=== PATIENT | female | born 1995 | race Caucasian/White ===

== ENCOUNTER 2017-08-23 20:42 | Inpatient (IN) ==
--- NOTE | 2017-08-23 21:25 | P.HPOB ---
History of Present Illness Primary Care Physician: NOT REQUIRED Chief Complaint: Labor pain History of Present Illness: Patient is a 22-year-old white female at 39 weeks 6 days [facility] only one visit that was today and presents complaining of contractions that are painful and regular. She was seen by Dr. David Olivo today and he stripped her membranes on the only day that he saw her and she is gone into labor. She has no leakage of fluid or bleeding. heart rate tracing is reactive and she is divina every 2-3 minutes Weeks Gestation:: 39 Para: 0 : 1 - Inpatient Certification If this patient has been admitted as an Inpatient: I certify that the inpatient services were ordered in accordance with Medicare regulations governing the order. This includes certification that hospital inpatient services are reasonable and necessary and in the case of services not specified as inpatient-only under 42 CFR 419.22(n), that they are appropriately provided as inpatient services in accordance to with the 2-midnight benchmark under 43 CFR 412.3(e) Estimated Total Length of Stay (Days): 3 Review of Systems Constitutional: Denies anorexia, Denies body ache(s), Denies chills, Denies daytime sleepiness, Denies excessive sweating, Denies fatigue, Denies fever(s), Denies headache(s), Denies increased appetite, Denies lack of energy, Denies malaise, Denies night sweats, Denies weakness, Denies weight gain, Denies weight loss, Denies other Cardiovascular: Denies bluish discoloration of hand/feet, Denies chest pain, Denies chest pain at rest, Denies chest pain with activity, Denies excessive sweating, Denies fainting, Denies fast heart rate, Denies foot swelling, Denies generalized swelling, Denies irregular heart rhythm, Denies leg pain with activity, Denies leg sores, Denies leg swelling, Denies lightheadedness, Denies radiating jaw, neck or arm pain, Denies rapid, pounding, or irregular heartbeat , Denies shortness of breath, Denies shortness of breath with activity, Denies shortness of breath when lying down, Denies shortness of breath causing sudden awakening, Denies slow heart rate, Denies other Respiratory: Denies change in phlegm color, Denies chest congestion, Denies cough, Denies coughing up blood, Denies excessive phlegm production, Denies pain on inspiration, Denies pain with cough, Denies shortness of breath, Denies shortness of breath with activity, Denies snoring, Denies stridor, Denies wheezing, Denies other Gastrointestinal: Denies abdominal pain, Denies belching, Denies black, tarry stools, Denies bloating, Denies bright, red blood in stools, Denies change in bowel habits, Denies constant urge to pass stool, Denies change in stools, Denies coffee ground vomit, Denies constipation, Denies cramping, Denies difficulty swallowing, Denies excessive passing of gas, Denies feeling full early, Denies heartburn, Denies incontinent of stools, Denies loose stools, Denies nausea, Denies pain with swallowing, Denies vomiting, Denies vomiting blood, Denies other Genitourinary: Denies abnormal periods, Denies abnormal vaginal bleeding, Denies absent period, Denies bleeding between periods, Denies blood in urine, Denies difficulty starting urination, Denies difficulty urinating, Denies dribbling after urination, Denies frequent nighttime urination, Denies genital itching, Denies genital lesions, Denies heavy periods, Denies hot flashes, Denies light periods, Denies nipple discharge, Denies painful intercourse, Denies painful periods, Denies painful urination, Denies pelvic pain, Denies prolapse symptoms, Denies sexual problems, Denies side pain, Denies urinary incontinence, Denies urinary urgency, Denies vaginal discharge, Denies vaginal dryness, Denies vaginal odor, Denies vaginal itching, Denies other Musculoskeletal: Denies abnormal walking, Denies back pain, Denies body aches, Denies decreased muscle mass, Denies deformity, Denies joint pain, Denies joint swelling, Denies limited joint movement, Denies loss of height, Denies muscle cramps, Denies muscle weakness, Denies neck pain, Denies numbness, Denies radiating pain into limb, Denies stiffness, Denies tingling, Denies other Neurologic: Denies abnormal hearing, Denies abnormal movements, Denies abnormal speech, Denies abnormal walking, Denies behavioral changes, Denies burning sensations, Denies confusion, Denies dizziness, Denies fainting, Denies frequent falls, Denies headache(s), Denies lack of coordination, Denies localized weakness, Denies loss of vision, Denies memory loss, Denies numbness, Denies other visual disturbances, Denies radiating pain, Denies restless legs, Denies convulsions, Denies seizure-like activity, Denies sensory deficit, Denies tingling, Denies tingling/numbness/burning sensations, Denies tremor(s), Denies unsteadiness, Denies weakness, Denies other Medications and Allergies Allergies Allergy/AdvReac Type Severity Reaction Status Date / Time No Known Allergies Allergy Unverified 08/23/17 21:21 Home Medications Medication Instructions Recorded Confirmed Type No Known Home Medications 08/23/17 08/23/17 History Exam Vital signs: Vital Signs 08/23/17 21:10 08/23/17 21:11 Pulse Rate 81 Respiratory Rate 18 Blood Pressure 137/72 - Constitutional no acute distress - Routine HEENT Exam Head: Present: normocephalic, atraumatic Eye: Present: PERRL - Routine Respiratory Exam Comments: Clear to auscultation normal breath sounds - Routine Cardiovascular Exam Present: RRR - Routine Abdominal Exam Present: soft Comments: Size equal dates - Routine Exam Comments: Pelvic exam reveals a cervix that is 4 cm/80%/-2 vertex with a bulging bag - Routine Skin Exam Present: intact - Routine Neurological Exam Present: alert, oriented X3 Caprini VTE Risk Assessment Caprini VTE Risk Assessment: No/Low Risk (score <= 1) Caprini Risk Assessment Model: Point Value = 1 Point Value = 2 Point Value = 3 Point Value = 5 Age 41-60 Minor surgery BMI > 25 kg/m2 Swollen legs Varicose veins or History of unexplained or recurrent spontaneous Oral contraceptives or hormone replacement Sepsis (< 1 month) Serious lung disease, including pneumonia (< 1 month) Abnormal pulmonary function Acute myocardial infarction Congestive heart failure (< 1 month) History of inflammatory bowel disease Medical patient at bed rest Age 61-74 Arthroscopic surgery Major open surgery (> 45 min) Laparoscopic surgery (> 45 min) Malignancy Confined to bed (> 72 hours) Immobilizing plaster cast Central venous access Age >= 75 History of VTE Family history of VTE Factor V Leiden Prothrombin [id number] Lupus anticoagulant Anticardiolipin antibodies Elevated serum homocysteine Heparin-induced thrombocytopenia Other congenital or acquired thrombophilia Stroke (< 1 month) Elective arthroplasty Hip, pelvis, or leg fracture Acute spinal cord injury (< 1 month) Prophylaxis Regimen: Total Risk Factor Score Risk Level Prophylaxis Regimen 0-1 Low Early ambulation 2 Moderate Order ONE of the following: *Sequential Compression Device (SCD) *Heparin 5000 units SQ BID 3-4 Higher Order ONE of the following medications: *Heparin 5000 units SQ TID *Enoxaparin/Lovenox 40 mg SQ daily (WT < 150 kg, CrCl > 30 mL/min) *Enoxaparin/Lovenox 30 mg SQ daily (WT < 150 kg, CrCl > 10-29 mL/min) *Enoxaparin/Lovenox 30 mg SQ BID (WT < 150 kg, CrCl > 30 mL/min) AND/OR *Sequential Compression Device (SCD) 5 or more Highest Order ONE of the following medications: *Heparin 5000 units SQ TID (Preferred with Epidurals) *Enoxaparin/Lovenox 40 mg SQ daily (WT < 150 kg, CrCl > 30 mL/min) *Enoxaparin/Lovenox 30 mg SQ daily (WT < 150 kg, CrCl > 10-29 mL/min) *Enoxaparin/Lovenox 30 mg SQ BID (WT < 150 kg, CrCl > 30 mL/min) AND *Sequential Compression Device (SCD) Assessment and Plan - Diagnosis (1) Uterine contractions during Code(s): O62.2 - Other uterine inertia Status: Acute Plan: Plan admit to labor and delivery, managed labor appropriately, anticipate vaginal delivery
[2017-08-23] MEDS ORDERED: Oxytocin 30 Units/500ml Premix 30 UNITS/500 ML BAG IV.SIG ONE ×2 (21:26→21:27)
[2017-08-23] MEDS ORDERED: Sod Chloride 0.9% Inj 1,000 ML IV.CONT PRN ×2 (21:26→21:27)
[2017-08-23] MEDS ORDERED: fentaNYL Citrate Inj 100 MCG/2 ML Ampul IV.PUSH PRN ×4 (21:26→21:27)
[2017-08-23] MEDS ORDERED: Naloxone Inj 0.4 MG/ML Vial IV.PUSH PRN ×2 (21:26→21:27)
[2017-08-23] MEDS ORDERED: Sodium Chlor 0.9% Inj 500 ML IV.SIG PRN ×2 (21:26→21:27)
[2017-08-23] MEDS ORDERED: Citric Acid/Sodium Citrate Liq 30 ML UDC PO SCH ×2 (21:30)
[2017-08-23] MEDS ORDERED: Lidocaine PF 1% Inj 30 ML Vial ONE (22:30)
[2017-08-23] MEDS ORDERED: fentaNYL 2MCG-Bupiv 0.125% Epi 150 ML EPIDURAL ONE ×2 (22:31→23:45)
[2017-08-23 22:32] LABS: Baso % (Auto) 0.2 % (0.0-2.0); Eos % (Auto) 0.1 % (0.0-4.0); Hematocrit 35.8 % (35.0-46.0); Hemoglobin 12.9 gm/dL (11.6-15.3); Lymph # (Auto) 1.9 th/mm3 (1.0-4.8); Lymph % (Auto) 9.4 % (9.0-44.0); Mean Corpuscular HGB Conc 35.9 % (32.0-36.0); Mean Corpuscular Hemoglobin 31.1 pg (27.0-34.0); Mean Corpuscular Volume 86.7 fL (80.0-100.0); Mono # (Auto) 1.1 th/mm3 (0.0-0.9); Mono % (Auto) 5.4 % (0.0-8.0); Neut # (Auto) 17.3 th/mm3 (1.8-7.7); Neut % (Auto) 84.9 % (16.0-70.0); Platelet Count 341 th/mm3 (150-450); Red Blood Count 4.13 mil/mm3 (4.00-5.30); Red Cell Distribution Width 12.9 % (11.6-17.2); White Blood Count 20.4 th/mm3 (4.0-11.0)
[2017-08-23 22:40] LABS: Amphetamine Urine With Conf Neg (Neg); Benzodiazepine Urine With Conf Neg (Neg)
[2017-08-23 22:44] LABS: Bacteria,Urine Rare /hpf; Bilirubin,Urine Negative (Negative); Clarity,Urine Hazy (Clear); Color,Urine Yellow (Yellw/Straw); Glucose,Urine (UA) Negative (Negative); Leukocyte Esterase,Urine Small (Negative); Mucus,Urine Few /lpf (Occasional); Nitrite,Urine Negative (Negative); Specific Gravity,Urine 1.008 (1.002-1.035); Squamous Epithelial Cell,Urine 7 /hpf (0-5)
[2017-08-23] MEDS ORDERED: Penicillin G Potassium Inj 2,500,000 UNIT in Sodium Chlor 0.9% Inj 100 ML IV.SIG SCH (23:00)
[2017-08-23] MEDS ORDERED: fentaNYL Citrate Inj 100 MCG/2 ML Ampul EPIDURAL ONE (23:42)
[2017-08-24 00:06] LABS: Hepatitis A IgM Antibody Nonreactive (Nonreactive)
[2017-08-24 00:07] LABS: Hepatitits B Surface Antigen Nonreactive (Nonreactive)
[2017-08-24] MEDS ORDERED: Penicillin G Potassium Inj 2,500,000 UNIT in Sodium Chlor 0.9% Inj 100 ML IV.SIG SCH (01:28)
[2017-08-24] MEDS ORDERED: Acetaminophen 325 MG Tablet PO PRN (02:17)
[2017-08-24] MEDS ORDERED: Zolpidem Tartrate 5 MG Tablet PO PRN (02:17)
[2017-08-24] MEDS ORDERED: Naloxone Inj 0.4 MG/ML Vial IV.PUSH PRN (02:17)
[2017-08-24] MEDS ORDERED: Benzocaine 20% Top Spray 60 ML Can TOPICAL PRN (02:17)
[2017-08-24] MEDS ORDERED: Bisacodyl 10 MG Supp RECTAL PRN (02:17)
[2017-08-24] MEDS ORDERED: Witch Hazel 50%/Glyderin 12.5% 40 Pad Jar RECTAL PRN (02:17)
[2017-08-24] MEDS ORDERED: Oxytocin 30 Units/500ml Premix 30 UNITS/500 ML BAG IV.CONT SCH (02:30)
--- NOTE | 2017-08-24 02:33 | P.OBDELI ---
Weeks Gestation: 39 Patient Started Active Labor: Yes Anesthesia: Epidural Episiotomy: midline Vaginal Delivery: Normal Presentation: Occiput anterior Nuchal Cord: None Delayed Cord Clamping (45 sec): Yes Placenta: Spontaneous delivery, Intact, 3 vessel cord Laceration: Episiotomy, 2 deg Repair: Chromic running Estimated blood loss (mL): 50 : Male Additional Information: Delivery supervised by Dr. Sow and Dr. Sanford
--- NOTE | 2017-08-24 07:25 | P.PNOB ---
Subjective Post day: 0 Interval history: Ms Fields is a 22 YO PPD#0 after at 39/6 weeks. Pain well controlled, taking PO, voiding, no BM or flatulence yet and not OOB yet. Bleeding the same as a period and no clots. . Still unsure of control yet but does not want a depo shot. Denies CP, SOB, N/V/D, DVT pain. All questions answered. Objective Vital Signs/I&O: Vital Signs 08/23/17 21:10 08/23/17 21:11 08/23/17 22:50 Temperature Pulse Rate 81 90 Respiratory Rate 18 Blood Pressure 137/72 08/23/17 22:55 08/23/17 23:15 08/23/17 23:25 Temperature Pulse Rate 84 87 92 H Respiratory Rate 17 Blood Pressure 114/83 127/73 106/76 08/23/17 23:30 08/23/17 23:40 08/23/17 23:45 Temperature Pulse Rate 80 92 H 86 Respiratory Rate Blood Pressure 133/75 134/74 123/75 08/23/17 23:55 08/24/17 00:00 08/24/17 00:15 Temperature 98.3 F Pulse Rate 99 H 83 Respiratory Rate 15 Blood Pressure 114/64 118/56 L 08/24/17 00:25 08/24/17 00:55 08/24/17 01:20 Temperature Pulse Rate 87 91 H 87 Respiratory Rate Blood Pressure 119/71 120/69 122/68 08/24/17 01:25 08/24/17 02:10 08/24/17 02:31 Temperature Pulse Rate 103 H 102 H Respiratory Rate 16 15 Blood Pressure 112/65 08/24/17 02:46 08/24/17 02:50 08/24/17 03:30 Temperature 98.7 F Pulse Rate 94 H 100 H Respiratory Rate 14 Blood Pressure 118/63 126/72 08/24/17 05:00 Temperature 98.2 F Pulse Rate 74 Respiratory Rate 17 Blood Pressure 125/70 Intake & Output 08/23/17 08/24/17 08/24/17 18:59 06:59 18:59 Weight 63.049 kg Result Diagrams: 08/23/17 22:15 Objective Remarks: GENERAL: Well-nourished, well-developed patient. CARDIOVASCULAR: Regular rate and rhythm without murmurs, gallops, or rubs. RESPIRATORY: Breath sounds equal bilaterally. No accessory muscle use. ABDOMEN/GI: Abdomen soft, non-tender. Fundus: Firm, non-tender at umbilicus. GENITOURINARY: Light to moderate bleeding. EXTREMITIES: No cyanosis or edema, non-tender, without signs of DVT. Medications and IVs: Active Medications Acetaminophen (Tylenol) 650 mg PO Q4H PRN PRN Reason: PAIN SCALE 1 TO 2 Al Hydroxide/Mg Hydroxide (Milk Of Magnesia Liq) 30 ml PO Q12H PRN PRN Reason: Mild Constipation Benzocaine (Americaine 20% [place]) 1 spray TOPICAL Q4H PRN PRN Reason: For Perineum Discomfort Bisacodyl (Dulcolax Supp) 10 mg RECTAL DAILY PRN PRN Reason: SEVERE CONSITIPATION Diphtheria/Pertussis/Tetanus Vacc (Boostrix Vaccine Inj) 0.5 ml IM .ONCE ONE Stop: 08/24/17 16:01 Ephedrine Sulfate (Ephedrine/Ns Syringe) 10 mg IV.PUSH UNSCH PRN PRN Reason: SEE LABEL COMMENTS Stop: 08/24/17 23:42 Last Admin: 08/23/17 23:53 Dose: 10 mg Oxytocin (Pitocin 30 Units/Ns 500 Ml Premix) 30 units in 500 mls @ 100 mls/hr IV.CONT Q5H EDEN Stop: 08/24/17 07:29 Lactulose (Lactulose Liq) 30 ml PO DAILY PRN PRN Reason: SEVERE CONSITIPATION Measles/Mumps/Rubella Vaccine Live (M-M-R Ii Vaccine Inj) 0.5 ml SQ .ONCE ONE Stop: 08/24/17 16:01 Naloxone HCl (Narcan Inj) 0.1 mg IV.PUSH Q2M PRN PRN Reason: for opiate reversal Ondansetron HCl (Zofran Odt) 4 mg PO Q6H PRN PRN Reason: NAUSEA OR VOMITING Senna/Docusate Sodium (Vy-Colace) 1 tab PO BID [facility] Sennosides (Senokot) 17.2 mg PO Q12H PRN PRN Reason: Moderate Constipation Sodium Chloride (Ns Flush) 2 ml IV.FLUSH BID [facility] Sodium Chloride (Ns Flush) 2 ml IV.FLUSH PRN PRN PRN Reason: FLUSH AFTER USING IV ACCESS Witch [place]/Glycerin (Tucks Pads) 1 applicatio RECTAL QID PRN PRN Reason: HEMORRHOIDS Zolpidem Tartrate (Ambien) 5 mg PO HS PRN PRN Reason: SLEEP Assessment and Plan - Diagnosis (1) Normal delivery at term Code(s): O80 - Encounter for full-term uncomplicated delivery Status: Acute Plan: 22 YO PPD#0 after at 39/6 weeks followed by [facility], UDS negative, GBS unknown, is progressing well. Pain controlled, PO, voiding, no BM or flatulence , will ambulate later today as epidural still wearing off from delivery early this morning. Bleeding same as a period, no clots. . No CP, SOB, N/ V/D, or DVT pain. 1. Routine care -Motrin PRN -Pelvic rest x6 weeks -Shower/no bath for 2 weeks -Plans to discuss contraception options with DIRECTOR OF ONLINE MERCHANDISING in 6 weeks; declines depo- provera - -Encourage OOB Pt dw Lenora Sanford and seen with Dr Deshpande - Plan Discharge Planning: Dispo: 1-2 days
[2017-08-24] MEDS: Senna/Docusate Sodium 8.6/50 MG Tablet PO SCH ×2 (08:07→23:33)
[2017-08-24] MEDS ORDERED: Diphtheria/Tetanus/Pertussis Vaccine Inj 0.5 ML Syringe IM ONE (16:00)
[2017-08-24] MEDS ORDERED: Measles/Mumps/Rubella Vaccine Inj 0.5 ML Vial SQ ONE (16:00)
--- NOTE | 2017-08-25 08:02 | P.PNOB ---
Subjective Post day: 1 Interval history: Ms. Fields is a 22 yo on PPD1 from with unknown GBS status. She is doing well. She reports minimal abdominal pain. 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 She is urinating without difficulties and and has had a bowel movement. She denies any nausea, vomiting, chest pain, difficulty breathing, leg pain, dizziness on standing. She is breast and bottle feeding. She goes to the [facility] for gynecologic care and will discuss with them her options for control. Objective Vital Signs/I&O: Vital Signs 08/24/17 08:45 08/24/17 15:40 08/24/17 19:40 Temperature 97.8 F 98.5 F 98.3 F Pulse Rate 74 77 76 Respiratory Rate 18 Blood Pressure 119/70 114/72 110/75 Result Diagrams: 08/23/17 22:15 Objective Remarks: GENERAL: Well-nourished, well-developed patient. CARDIOVASCULAR: Regular rate and rhythm without murmurs, gallops, or rubs. RESPIRATORY: Breath sounds equal bilaterally. No accessory muscle use. ABDOMEN/GI: Abdomen soft, non-tender. Fundus: Firm, non-tender about 3 cm below umbilicus. GENITOURINARY: Light to moderate bleeding. EXTREMITIES: No cyanosis or edema, non-tender, without signs of DVT. Medications and IVs: Active Medications Acetaminophen (Tylenol) 650 mg PO Q4H PRN PRN Reason: PAIN SCALE 1 TO 2 Al Hydroxide/Mg Hydroxide (Milk Of Magnesia Liq) 30 ml PO Q12H PRN PRN Reason: Mild Constipation Benzocaine (Americaine 20% Top [place]) 1 spray TOPICAL Q4H PRN PRN Reason: For Perineum Discomfort Bisacodyl (Dulcolax Supp) 10 mg RECTAL DAILY PRN PRN Reason: SEVERE CONSITIPATION Lactulose (Lactulose Liq) 30 ml PO DAILY PRN PRN Reason: SEVERE CONSITIPATION Naloxone HCl (Narcan Inj) 0.1 mg IV.PUSH Q2M PRN PRN Reason: for opiate reversal Ondansetron HCl (Zofran Odt) 4 mg PO Q6H PRN PRN Reason: NAUSEA OR VOMITING Senna/Docusate Sodium (Vy-Colace) 1 tab PO BID EDEN Last Admin: 08/24/17 23:33 Dose: 1 tab Sennosides (Senokot) 17.2 mg PO Q12H PRN PRN Reason: Moderate Constipation Sodium Chloride (Ns Flush) 2 ml IV.FLUSH BID EDEN Sodium Chloride (Ns Flush) 2 ml IV.FLUSH PRN PRN PRN Reason: FLUSH AFTER USING IV ACCESS Witch [place]/Glycerin (Tucks Pads) 1 applicatio RECTAL QID PRN PRN Reason: HEMORRHOIDS Zolpidem Tartrate (Ambien) 5 mg PO HS PRN PRN Reason: SLEEP Assessment and Plan - Diagnosis (1) Normal delivery at term Code(s): O80 - Encounter for full-term uncomplicated delivery Status: Acute - Plan 22 YO PPD1 after at 39/6 weeks. Continue routine care. Motrin for abdominal pain Patient counselled on pelvic rest for 6 weeks. F/u in 6 weeks for care. Showers for the next 2 weeks. Plans for d/c tomorrow after infant is cleared for d/c by pediatrics team Pt dw Lenora Garcia and seen with Dr Ricardo Discharge Planning: Dispo: Tomorrow - Attending Attestation I personally saw and evaluated patient and participate in all amezquita decision making. Continue routine care. SMS
[2017-08-25] MEDS: Senna/Docusate Sodium 8.6/50 MG Tablet PO SCH (20:48)
[2017-08-26] MEDS: Senna/Docusate Sodium 8.6/50 MG Tablet PO SCH (08:24)
--- NOTE | 2017-08-26 08:55 | P.PNOB ---
Subjective Post day: 2 Interval history: Ms. Fields is a 22 yo on PPD2 from with unknown GBS status. She is doing well. She denies abdominal pain. Bleeding boiler cleaner than a period, clots smaller than a coin. She is urinating without difficulties and and has had a bowel movement. She denies any nausea, vomiting, chest pain, difficulty breathing, leg pain, dizziness on standing. She is breast and bottle feeding with no difficulties. She goes to the health department for gynecologic care and will discuss with them her options for control. Objective Vital Signs/I&O: Vital Signs 08/25/17 20:00 08/26/17 08:00 Temperature 98.1 F 98.3 F Pulse Rate 67 77 Respiratory Rate 18 16 Blood Pressure 120/74 108/70 Result Diagrams: 08/23/17 22:15 Objective Remarks: GENERAL: Well-nourished, well-developed patient. CARDIOVASCULAR: Regular rate and rhythm without murmurs, gallops, or rubs. RESPIRATORY: Breath sounds equal bilaterally. No accessory muscle use. ABDOMEN/GI: Abdomen soft, non-tender. Fundus: Firm, non-tender about 3 cm below umbilicus. GENITOURINARY: Light to moderate bleeding. EXTREMITIES: No cyanosis or edema, non-tender, without signs of DVT. Medications and IVs: Active Medications Acetaminophen (Tylenol) 650 mg PO Q4H PRN PRN Reason: PAIN SCALE 1 TO 2 Al Hydroxide/Mg Hydroxide (Milk Of Magnesia Liq) 30 ml PO Q12H PRN PRN Reason: Mild Constipation Benzocaine (Americaine 20% Top [place]) 1 spray TOPICAL Q4H PRN PRN Reason: For Perineum Discomfort Bisacodyl (Dulcolax Supp) 10 mg RECTAL DAILY PRN PRN Reason: SEVERE CONSITIPATION Lactulose (Lactulose Liq) 30 ml PO DAILY PRN PRN Reason: SEVERE CONSITIPATION Naloxone HCl (Narcan Inj) 0.1 mg IV.PUSH Q2M PRN PRN Reason: for opiate reversal Ondansetron HCl (Zofran Odt) 4 mg PO Q6H PRN PRN Reason: NAUSEA OR VOMITING Senna/Docusate Sodium (Vy-Colace) 1 tab PO BID EDEN Last Admin: 08/26/17 08:24 Dose: 1 tab Sennosides (Senokot) 17.2 mg PO Q12H PRN PRN Reason: Moderate Constipation Sodium Chloride (Ns Flush) 2 ml IV.FLUSH BID EDEN Sodium Chloride (Ns Flush) 2 ml IV.FLUSH PRN PRN PRN Reason: FLUSH AFTER USING IV ACCESS Witch [place]/Glycerin (Tucks Pads) 1 applicatio RECTAL QID PRN PRN Reason: HEMORRHOIDS Zolpidem Tartrate (Ambien) 5 mg PO HS PRN PRN Reason: SLEEP Assessment and Plan - Diagnosis (1) Normal delivery at term Code(s): O80 - Encounter for full-term uncomplicated delivery Status: Acute - Plan 22 YO PPD2 after at 39/6 weeks. -Ibuprofen and acetaminophen alternating PRN for abdominal cramping -Patient counselled on pelvic rest for 6 weeks. -Showers instead of baths for the next 2 weeks -F/u in 6 weeks for care with Dr Deshpande or Davion. -Patient elects to discuss control options with health department Plans for d/c today. Infant has been cleared for d/c by pediatrics team. Pt dw Lenora Sanford and seen with Dr Ricardo Discharge Planning: Dispo: Today
== END 2017-08-26 11:04 | disposition home or self-care (01) ==
LOC: HOBED 20:42 → H2E 21:26 → H1EA 08-24 06:09
PROVIDERS: ADMIT Obstetrics & Gynecology Maternal & Fetal Medicine; ATTEND Obstetrics & Gynecology Maternal & Fetal Medicine